=== PATIENT | female | born 1970 | race Caucasian/White ===

== ENCOUNTER 2017-01-28 13:44 | Emergency (ER) | payer SELFPAY ==
--- NOTE | ~2017-01-28 | ER ---
PATIENT'S NAME: NEREIDA BLUE [facility] AGE: 46 Y [address] ROOM: [place] [id number] LOCATION: [facility] ADMIT DATE: 01/28/2017 ER/Outpatient Report DISCHARGE DATE: 01/28/2017 FAMILY PHYSICIAN: Chon Ty MD ATTENDING PHYSICIAN: Antonio Childress CHIEF COMPLAINT: Dizziness. HISTORY OF PRESENT ILLNESS: The patient states that 6-8 weeks ago she began to have some spells where in she feels like her head was underwater and she was just very unsteady. It has never been vertiginous. She does state that she has the unusual roaring sensation in her right ear, which happens with every episode. The episodes have gone from a few times a week to several times a day over the course of the last several weeks. She was seen and evaluated in [place] at a clinic and was told that her thyroid was not perfect but they wanted to wait a little bit longer to fix that and her other workup was reportedly normal. She did not try any medications and the symptoms have become more concerning to her. They typically do not happen when she is sitting down but only when she is standing up. She does note that they seem to be worse when it is dark and notes that she has some perception issues as she describes with an incident where she thought she saw something on the floor that was and in fact there in better light. She just feels like she is "on something" and does not really like how it makes her feel. She has a pretty extensive medical history including hypothyroidism, cervical cancer, sleep apnea that is not treated and cellulitis that cause hospitalization a few years ago. She denies any fevers or chills associated with this and states she has otherwise been doing pretty well. PAST MEDICAL HISTORY: Documented on the record and reviewed by me. SOCIAL HISTORY: Documented on the record and reviewed by me. MEDICATIONS: Documented on the record and reviewed by me. ALLERGIES: DOCUMENTED ON THE RECORD AND REVIEWED BY ME. REVIEW OF SYSTEMS: All systems were reviewed and negative except as noted in the HPI. PATIENT'S NAME: NEREIDA BLUE [facility] AGE: 46 Y [address] ROOM: [place] [address] LOCATION: ED ADMIT DATE: 01/28/2017 ER/Outpatient Report DISCHARGE DATE: 01/28/2017 FAMILY PHYSICIAN: Chon Ty MD ATTENDING PHYSICIAN: Antonio Childress PHYSICAL EXAMINATION: VITAL SIGNS: Blood pressure 128/60, pulse is 66, respiratory rate is 18, temperature 98.4, SpO2 is 95% on room air. GENERAL: Age appropriate female, in no obvious pain or distress, sitting upright on the exam chair. NEUROLOGIC: The patient's GCS is 15. No focal deficits. No asymmetry. No nystagmus. Amina-Hallpike does not elicit symptoms or nystagmus. The patient has no difficulty with walking. No problems with alternating movements. Hearing is grossly intact. Vision is grossly intact. Proprioception is grossly intact. HEENT: Normocephalic, atraumatic. Eyes are PERRL. Oropharynx is clear. NECK: Supple. Trachea is midline. TMs are poorly visualized bilateral, but appeared to have some scarring. No clear infections or bulging. The mastoid process are not tender. CHEST/HEART: Regular rate and rhythm with no murmurs. LUNGS: Clear to auscultation bilaterally with no rhonchi, wheezes, or rales. ABDOMEN: Benign. BACK: Nontender to palpation throughout. No CVA tenderness. EXTREMITIES: Warm and well perfused. There is some swelling and erythema of the right lower extremity that the patient states is normal for her. The skin is otherwise warm, dry, and intact. Extremities otherwise normal. LABORATORY DATA AND X-RAYS: Head CT is normal per Radiology. Hemoglobin A1c is 6.6. CMS is notable for an elevated hematocrit with normal hemoglobin, WBCs, and platelets. ESR is 4. CMS is notable for CO2 of 35. LFTs are unremarkable. Remainder of CMS is normal. CRP is 1.2. Free T4 is 1.1. TSH is 7.17. IMPRESSION: Likely peripheral vertigo, exact etiology unclear. ED COURSE: Vertigo is not reproducible, but symptoms are intermittent. Not consistent with central process based on duration and intermittent nature of symptoms. No definite visual changes. The auditory component is indicative of a more peripheral component. The patient was able to walk without difficulty in the emergency department, remained asymptomatic for us otherwise. Not consistent with BPPV. The head CT excludes any bleeds or large mass lesions. At this time, I do not think an MRI would be more helpful in evaluating her on an emergent basis. She does have diabetes with A1c of 6.6 based on the ADA recommendations. Given that finding, we will initiate metformin for her and taper her up to a g a day. She should follow up with her primary care provider for that. Her thyroid is also noted to be significantly low and I will encourage her to seek further evaluation regarding titration of her levothyroxine for that issue. Regarding her dizziness, I did discuss the case with Dr. Keshav Euceda, ENT, and he PATIENT'S NAME: NEREIDA BLUE [facility] AGE: 46 Y [address] ROOM: [place], [place] [address] LOCATION: [facility] ADMIT DATE: 01/28/2017 ER/Outpatient Report DISCHARGE DATE: 01/28/2017 FAMILY PHYSICIAN: Chon Ty MD ATTENDING PHYSICIAN: Antonio Childress will see her in clinic at her earliest convenience for followup on further evaluation. I did give the patient a prescription for diazepam should she have persistent debilitating symptoms to try to help her feel better. She should return immediately as needed and should definitely see both her primary care physician for the new diagnosis of diabetes in addition to her hypothyroidism and follow up with Dr. Euceda for her dizziness. MD KODAK CHEEK/robinl /[id number] d: 01/29/170 t: 02/05/17 [id number], OUTPATIENT REPORT
[~2017-01-28 13:44] MED LIST: ADVIL200 MG PO; CELEXA20 MG PO; EXCEDRIN MIGRA1 EACH PO; FLORASTOR250 MG PO; KEFLEX500 MG PO; LACTINEX CHEWA1 EACH PO; LEVOTHROID (S125 MCG PO; MIRAPEX0.125 MG PO; MOTRIN IB200 MG PO; PEPCID20 MG PO
[2017-01-28 14:43] LABS: BASOPHIL # 0.1 K/uL (0.0-0.2); BASOPHIL % 0.7 %; EOSINOPHIL # 0.1 K/uL (0.0-0.5); EOSINOPHIL % 0.7 %; HEMATOCRIT 48.2 % (33.0-46.0); HEMOGLOBIN 13.2 g/dL (10.0-15.0); IMMATURE GRANULOCYTE % 0.2 %; LYMPHOCYTE # 2.3 K/uL (0.8-4.0); LYMPHOCYTE % 26.8 %; MCHC 27.4 gm/dL (32.0-36.5); MCV 91.5 fl (83.0-98.0); MONOCYTE # 0.6 K/uL (0.0-1.0); MONOCYTE % 6.6 %; MPV 9.6 fl (9.4-12.4); NEUTROPHIL # (ANC) 5.7 K/uL (1.8-7.8); NRBC % 0 /100WBC (0-0.00); PLATELET COUNT 285 K/uL (150-450); RBC 5.27 M/uL (3.50-5.50); RDW-CV 15.5 % (11.9-14.6); WBC 8.7 K/uL (4.0-11.0)
[2017-01-28 15:07] LABS: ALBUMIN 3.1 gm/dL (3.5-5.0); ALK PHOS 84 IU/L (33-138); ALT 27 IU/L (12-78); AST 14 IU/L (10-40); BLOOD UREA NITROGEN 18 mg/dL (6-24); CALCIUM 8.1 mg/dL (8.5-10.5); CHLORIDE 103 mMol/L (96-110); CREATININE 0.9 mg/dL (0.5-1.1); ESTIMATED GFR (MDRD EQUATION) > 60; SODIUM 140 mMol/L (135-145); TOTAL BILIRUBIN 0.4 mg/dL (0.0-1.5); TOTAL PROTEIN 6.9 g/dL (6.0-8.4)
[2017-01-28 15:13] LABS: CO2 35 mMol/L (22-32)
== END 2017-01-28 16:30 | disposition disaster alternative care site (69) ==
LOC: GMED 13:44
PROVIDERS: Emergency Medicine
DX: R42 Dizziness and giddiness (principal); E11.9 Type 2 diabetes mellitus without complications; E03.9 Hypothyroidism, unspecified